=== PATIENT | female | born 1965 | race Caucasian/White ===

== ENCOUNTER 2022-05-17 09:49 | Outpatient (CLI) | payer BC, SELFPAY ==
--- OUTSIDE RECORDS SUMMARY | 2022-05-17 09:53 | XMS_ITS | Clinical Summary ---
:1965 Author Organization [facility] [place] [address] Care Team Providers Name Role Phone Woodrow Mustafa MD Primary Care Provider [phone] Allergies Active Allergy Reactions Severity Noted Date Comments Amoxicillin 02/13/2007 Penicillins Hives 04/02/2020 Medications Medication Sig Dispensed Refills Start Date End Date Status Cholecalciferol, Take 1 tablet by 1 tablet 0 06/11/2016 Active Vitamin D3, (VITAMIN mouth once D-3) 2,000 unit daily. tabletIndications: Well adult exam turmeric 400 mg Take by mouth. 0 02/05/2019 Active capIndications: Well adult exam famotidine (PEPCID) 20 Take 1 tablet by 180 tablet 3 0 Active mg tabletIndications: mouth 2 times Heartburn daily. psyllium husk, with Take 1 Packet by 30 Packet 0 04/02/2020 Active sugar, (METAMUCIL) 3.4 mouth 2 times gram packetIndications: daily. Bleeding hemorrhoids citalopram (CELEXA) 20 Take 1 Tablet 90 Tablet 3 03/03/2022 Active mg tabletIndications: (20 mg) by mouth Premenstrual tension once daily. syndrome, Major depressive disorder, recurrent, mild (HC) Active Problems Problem Noted Date Postmenopausal 03/27/2020 Bleeding hemorrhoids 03/09/2020 GERD (gastroesophageal reflux disease) 07/11/2014 Raynaud's syndrome Resolved Problems Problem Noted Date Resolved Date Premenstrual tension syndromes 09/21/2007 0 Gluten intolerance 03/27/2020 Encounters Date Type Specialty Care Team Description 03/03/2022 Office Visit Woodrow Mustafa, [place] peralta MD 03/03/2022 Travel 03/01/2022 Refill Woodrow Mustafa, Faith renee Request (Citalopram) from Last 3 Months Immunizations Name Administration Dates Next Due COVID-19 vaccine ([employer] 11/16/2020, 10/26/2020 30mcg/0.3mL) PF, MDV Hepatitis B (Adult) 06/09/1993, 01/04/1993, 12/01/1992 Influenza, IIV3 (Age 6-35 mos) 05/29/2015, 05/04/2012, 05/06 Influenza, IIV3 (Age >=3 years) 06/13/2013, 05/17/2011, 04/15, 05/19/2009, 06/16/2008, 06/04/2007 Influenza, IIV4 05/09/2019, 05/06/2017, 04/19/2016, 04/30/2014 Influenza, IIV4 (=>6mos) MDV 04/29/2016 Td (Age >=7 Years) 10/24/1997 Tdap 01/09/2018, 03/25/2008 Family History Medical History Relation Name Comments Asthma Brother Heart Disease Father [place] Cancer-colon Maternal Aunt Cancer Maternal Grandfather leukemia Cancer-breast Maternal Grandmother Cancer-colon Maternal Uncle Johnnie Diabetes Mother Hypertension Mother Stroke Mother Stroke Paternal Grandmother Cancer Sister 1 Leelee uterine Diabetes Sister 1 Leelee Cancer Sister 2 Theresa thyroid Relation Name Status Comments Brother Alive Father Maternal Aunt Maternal Grandfather Maternal Grandmother Maternal Uncle Johnnie Mother Paternal Grandfather Paternal Grandmother Sister 1 Leelee Alive Sister 2 Theresa Alive Sister 3 Daniela Alive Sister 4 Sofie Alive Social History Tobacco Use Types Packs/Day Years Used Date Never Smoker Smokeless Tobacco: Never Used Tobacco Cessation: Counseling Given: Yes Alcohol Use Standard Drinks/Week Comments Not Currently 0 (1 standard drink = 0.6 oz pure alcoho l) rare Sex Assigned at Date Recorded Not on file Obstetrics History Last Filed Vital Signs Vital Sign Reading Time Taken Comments Blood Pressure 102/60 03/03/2022 7:46 AM CDT Pulse 72 03/03/2022 7:46 AM CDT Temperature 36.3 ??C (97.3 ??F) 01/09/2022 9:18 AM CDT Respiratory Rate 14 01/09/2022 9:18 AM CDT Oxygen Saturation 100% 01/09/2022 9:18 AM CDT Inhaled Oxygen Concentration - - Weight 57.2 kg (126 lb) 03/03/2022 7:46 AM CDT Height 167.6 cm (5' 6) 03/03/2022 7:46 AM CDT Body Mass Index 20.34 03/03/2022 7:46 AM CDT Plan of Treatment Health Maintenance Due Date Last Done Comments Zoster (shingles) series for age 0904/26/2016 50+ (1 of 2) Mammogram for age 45-75 05/06/2021 05/06/2020, 04/16/2019, 04/10/2018, Additional history exists COVID-19 vaccine series (4 - 08/31/2021 07/06/2021, 021, Booster for Pfizer series) 10/26/2020 Influenza for age 50-64 04/14/2022 05/09/2019, 05/06/2017, 04/29/2016, Additional history exists BMI (ht and wt on same day) for 03/03/2023 03/03/2022, 02/12, age 18+ 03/27/2020, Additional history exists Depression screening for age 12+ 03/03/2023 03/03/2022, , 03/02/2021, Additional history exists Colonoscopy through age 75 03/26/2023 03/26/2013 Pap test for age 21-65 03/02/2026 03/02/2021, 03/02/2021, 02/20/2018, Additional history exists Lipids for age 45-75 03/03/2027 03/03/2022, 03/02/2021, 02/05/2019, Additional history exists Tetanus booster 01/10/2028 01/09/2018, 03/25/2008, 10/24/1997 Tdap Completed 01/09/2018, 03/25/2008 Hepatitis C screening for age Completed 03/03/2022 18-79 Procedures Procedure Name Priority Date/Time Associated Diagnosis Comme nts UA W/ SEDIMENT EXAM Routine 03/03/2022 8:30 AM Well adult exam Results for this REFLEXED PER CDT procedure are i n CRITERIA the results section. ANTI HCV Routine 03/03/2022 8:26 AM Need for hepatitis C R esults for this CDT screening test procedure are in the results section. LIPID PANEL W Routine 03/03/2022 8:26 AM Well adult exam Resul ts for this REFLEX MEASURED LDL CDT procedur e are in the results section. TSH Routine 03/03/2022 8:26 AM Well adult exam Result s for this CDT procedure are i n the results section. CBC W PLT NO DIFF Routine 03/03/2022 8:26 AM Well adult exam R esults for this CDT procedure are i n the results section. BASIC METABOLIC Routine 03/03/2022 8:26 AM Well adult exam Res ults for this PANEL CDT procedure are i n the results section. from Last 3 Months Results (ABNORMAL) UA W/ SEDIMENT EXAM REFLEXED PER CRITERIA (03/03/2022 8:30 AM CDT) [facility] gist Method Time Signature COLOR Yellow Yellow Color 03/03/2022 [place] 9:18 AM [facility] CLARITY Clear Clear 03/03/2022 [place] Clarity 9:18 AM [facility] SPECIFIC 1.015 1.010, 03/03/2022 [place] GRAVITY,URINE 1.015, 9:18 AM [facility] 1.020, 1.025 LABORATORY PH,URINE 7.0 6.0, 7.0, 03/03/2022 [place] 8.0, 5.5, 9:18 AM [facility] 6.5, 7.5, LABORATORY 8.5 UROBILINOGEN, Normal Normal EU/dl 03/03/2022 [place] QUALITATIVE 9:18 AM [facility] PROTEIN, Trace (A) Negative 03/03/2022 [place] URINE mg/dL 9:18 AM [facility] GLUCOSE, Negative Negative 03/03/2022 [place] URINE mg/dL 9:18 AM [facility] KETONES,URINE Negative Negative 03/03/2022 [place] mg/dL 9:18 AM [facility] BILIRUBIN,URI Negative Negative 03/03/2022 [place] NE 9:18 AM [facility] OCCULT Negative Negative 03/03/2022 [place] BLOOD,URINE 9:18 AM [facility] NITRITE Negative Negative 03/03/2022 [place] 9:18 AM [facility] LEUKOCYTE Negative Negative 03/03/2022 [place] ESTERASE 9:18 AM [facility] Specimen Anatomical Collection Method Collection Time Receive d Time (Source) Location / / Volume Laterality Urine URINE SPECIMEN / Non-Blood / 03/03/2022 8:30 AM 03/03 8:30 Unknown Unknown CDT AM CDT Woodrow Mustafa MD URINE Performing Organization Address City/State/ZIP Code Phon e Number [facility] [address] [place] [address] (ABNORMAL) LIPID PANEL W REFLEX MEASURED LDL (03/03/2022 8:26 AM CDT) [facility] gist Method Time Signature CHOLESTEROL,TOTAL 217 (H) 100 - 199 03/03/2022 [place] mg/dL 9:45 AM [facility] TRIGLYCERIDES 59 <150 03/03/2022 [place] mg/dL 9:45 AM [facility] HDL CHOLESTEROL 61 >40 mg/dL 03/03/2022 [place] 9:45 AM [facility] NON-HDL 156 (H) <145 03/03/2022 [place] CHOLESTEROL mg/dl 9:45 AM [facility] CHOL/HDL RATIO 3.56 <4.50 03/03/2022 [place] 9:45 AM [facility] LDL CHOLESTEROL 144 (H) <=130 03/03/2022 [place] mg/dL 9:45 AM [facility] VLDL CHOLESTEROL 12 <=30 03/03/2022 [place] mg/dL 9:45 AM [facility] PROVIDER ORDERED RANDOM 03/03/2022 [place] STATUS 9:45 AM [facility] Specimen Anatomical Collection Method / Collection Time Recei robyn Time (Source) Location / Volume Laterality Blood BLOOD SPECIMEN / Venipuncture / 03/03/2022 8:26 2021 8:28 Unknown Unknown AM CDT AM CDT Woodrow Mustafa MD CHEMISTRY Performing Organization Address City/State/ZIP Code Phon e Number [facility] [address] [place] [address] TSH (03/03/2022 8:26 AM CDT) athologist Signature TSH 1.44 0.35 - 4.94 03/03/2022 [facility] [employer] uIU/mL 5:14 PM CDT LABORATORY-CENTR AL LABORATORY Specimen Anatomical Collection Method / Collection Time Recei robyn Time (Source) Location / Volume Laterality Blood BLOOD SPECIMEN / Venipuncture / 03/03/2022 8:26 2021 8:28 Unknown Unknown AM CDT AM CDT Narrative [facility]-CENTRAL LABORAT ORY - 03/03/2022 5:14 PM CDT In Adults, TSH values between 5.00 and 10.00 uIU/ml do not necessarily indicate the presence of Hyp othyroidism. Correlation with clinical findings such as presence of goiter and/or Thyroperoxidase (TPO) Antibody ma y be helpful. For more information please refer to SVITLANA 20 ; 291: [phone]. Woodrow Mustafa MD CHEMISTRY Performing Organization Address City/[facility] Code Phon e Number [facility] [employer] [address] [place] [address] LABORATORY-CENTRAL 1999 LABORATORY ANTI HCV (03/03/2022 8:26 AM CDT) [facility] Time Signature HEPATITIS C Non-Reacti Non-Reacti 03/03/2022 [employer] [employer] ANTIBODY ve ve 5:07 PM CDT LABORATORY-[place] [facility] LABORATORY Comment: Antibodies to HCV not detected; does not exclude the possibility of exposure to HCV. Specimen Anatomical Collection Method / Collection Time Recei robyn Time (Source) Location / Volume Laterality Blood BLOOD SPECIMEN / Venipuncture / 03/03/2022 8:26 2021 8:28 Unknown Unknown AM CDT AM CDT Woodrow Mustafa MD SEND OUTS Performing Organization Address City/[facility]/ZIP Code Phon e Number [facility] [address] [place] [address] LABORATORY-CENTRAL 1999 LABORATORY (ABNORMAL) CBC W PLT NO DIFF (03/03/2022 8:26 AM CDT) [facility] Method Time Signature WHITE BLOOD 5.3 4.5 - 11.0 03/03/2022 [place] COUNT thou/cu mm 9:30 AM [facility] RED BLOOD COUNT 4.36 4.00 - 03/03/2022 [place] 5.20 9:30 AM [facility] mil/cu mm LABORATORY HEMOGLOBIN 13.0 12.0 - 03/03/2022 [place] 16.0 g/dL 9:30 AM [facility] HEMATOCRIT 40.6 33.0 - 03/03/2022 [place] 51.0 % 9:30 AM [facility] MCV 93 80 - 100 03/03/2022 [place] fL 9:30 AM [facility] MCH 29.8 26.0 - 03/03/2022 [place] 34.0 pg 9:30 AM [facility] MCHC 32.0 32.0 - 03/03/2022 [place] 36.0 g/dL 9:30 AM [facility] RDW 12.1 11.5 - 03/03/2022 [place] 15.5 % 9:30 AM [facility] PLATELET COUNT 225 140 - 440 03/03/2022 [place] thou/cu mm 9:30 AM [facility] MPV 11.3 (H) 6.5 - 11.0 03/03/2022 [facility] fL 9:30 AM [facility] Specimen Anatomical Collection Method / Collection Time Recei robyn Time (Source) Location / Volume Laterality Blood BLOOD SPECIMEN / Venipuncture / 03/03/2022 8:26 2021 8:28 Unknown Unknown AM T AM CDT Woodrow Mustafa MD HEMATOLOGY Performing Organization Address City/State/ZIP Code Phon e Number [facility] [address] [place] [address] (ABNORMAL) BASIC METABOLIC PANEL (03/03/2022 8:26 AM CDT) P athologist Signature SODIUM 140 135 - 145 03/03/2022 [place] mmol/L 9:44 AM [facility] POTASSIUM 4.3 3.5 - 5.0 03/03/2022 [place] mmol/L 9:44 AM [facility] CHLORIDE 103 98 - 110 03/03/2022 [place] mmol/L 9:44 AM [facility] CO2,TOTAL 28 21 - 31 03/03/2022 [place] mmol/L 9:44 AM [facility] ANION GAP 9 5 - 18 03/03/2022 [place] 9:44 AM [facility] GLUCOSE 92 65 - 100 03/03/2022 [place] mg/dL 9:44 AM [facility] CALCIUM 9.6 8.5 - 10.5 03/03/2022 [place] mg/dL 9:44 AM [facility] BUN 18 8 - 25 03/03/2022 [place] mg/dL 9:44 AM [facility] CREATININE 0.86 0.57 - 03/03/2022 [place] 1.11 mg/dL 9:44 AM [facility] BUN/CREAT RATIO 21 (H) 10 - 20 03/03/2022 [facility] 9:44 AM [facility] eGFR 80 (L) >90 03/03/2022 [facility] mL/min/1.7 9:44 AM [facility] 3m2 LABORATORY Comment: As of 2021, eGFR is calcu lated by the CKD-EPI creatinine equation without race adjustment. eGFR can be inf luenced by muscle mass, exercise, and diet. The reported eGFR is an estimation only and is only applicable if the renal function is stable. Specimen Anatomical Collection Method / Collection Time Recei robyn Time (Source) Location / Volume Laterality Blood BLOOD SPECIMEN / Venipuncture / 03/03/2022 8:26 2021 8:28 Unknown Unknown AM [facility] Wood[facility] Must[facility] MD CHEMISTRY Performing Organization Address City/State/ZIP Code Phon e Number [facility] [address] [place] [address] from Last 3 Months Insurance Payer Benefit Plan Subscriber ID Effective Dates Phone Address Type / Group WC WORKERS WC WORKERS [id number] Effective for [phone] [address] COMP COMP all dates [id number] [place] [address] [employer] OF [id number] [place] [address] [place] [address] [place]ing[place] [phone] [employer] OF [id number] 2019-[place] [address] [address] [place] [phone] (Home) [place] [phone] (Work) Erwin Joseph Personal/Family Spouse [address] (Home) [place] [phone] (Work) IRMA JOSEPH Workers Comp Spouse [phone] (Home) [place] [phone] (Work) Advance Directives Latest Code Status on File Code Status Date Activated Date Inactivated Comments Full Code 04/02/2020 11:10 AM 04/02/2020 6:00 PM Code Status Discussion: Discussed Full Code 10/31/2016 6:55 PM 11/01/2016 3:16 PM Care Teams Head Packager Relationship Specialty Start Date End Date Woodrow Mustafa MD PCP - General 12/26/11
--- OUTSIDE RECORDS SUMMARY | 2022-05-17 09:53 | XMS_ITS ---
:1965 Author Care Team Providers Name Role Phone Thelma Payan Primary Care Provider Unavailable Allergies Code Code System Name Reaction Severity Status Onset NKDA ? Medications Name Status Start Date Stop Date ? ? citalopram 20 mg tablet Active ? Not avai lable diazepam 5 mg tablet Active ? Not availab le Fluarix Quad (PF) 60 mcg (15 mcg x 4)/0.5 mL IM Active ? Not available syringe oxycodone-acetaminophen 5 mg-325 mg tablet Active ? Not available Problems No Known Problems Procedures None recorded. Results Lab Results Date Name Specimen Result Interpretation Description Value Range Status Address ? 05/28/2020 SARS CoV 2 RNA Nose (nasal ? Result negative ? ? 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 Social History None recorded. Vaccine List None recorded. Plan of Care Reminders Provider Appointments None recorded. ? ? Lab None recorded. ? ? Referral None recorded. ? ? Procedures None recorded. ? ? Surgeries None recorded. ? ? Imaging None recorded. ? ? Vitals Blood Pressure 108/68 mm[Hg]
--- NOTE | 2022-05-17 10:15 | CRLHL7_ITS ---
For Patients: As a result of the Century Cures Act, medical imaging exams and procedure reports are released immediately into your electronic medical record. You may view this report before your referring provider. If you have questions, please contact your health care provider. BILATERAL SCREENING MAMMOGRAM WITH COMPUTER-AIDED DETECTION AND TOMOSYNTHESIS TECHNIQUE: CC and MLO views were obtained. These mammographic images have been obtained using full-field digital technique. These mammographic images were interpreted with the benefit of computer-aided detection. Breast Tomosynthesis was used in this interpretation. COMPARISON FILM: 05/12/21, 05/06/20, 04/16/19. FINDINGS: There are scattered areas of fibroglandular density IMPRESSION: There is no radiographic evidence for malignancy. ASSESSMENT: BI-RADS Category 1: Negative RECOMMENDATION: Routine screening mammogram in 1 year. A lay language report of this examination will be provided to the patient. Zoila Guardado M.D. Diagnostic/Breast Radiologist [email or web address] [place]/Dictated by: Zoila Guardado MD @ 05/17/2022 12:03:00 PM (Electronically Signed)
== END 2022-05-17 09:50 | disposition home or self-care (01) ==
LOC: MAMMO 09:50
PROVIDERS: Visit Provider Family Medicine
DX: Z12.31 Encounter for screening mammogram for malignant neoplasm of breast (principal)
CPT/HCPCS: 77063; 77067

== ENCOUNTER 2023-05-23 08:50 | Outpatient (CLI) | payer BC, SELFPAY ==
--- NOTE | 2023-05-23 09:15 | CRLHL7_ITS ---
For Patients: As a result of the Century Cures Act, medical imaging exams and procedure reports are released immediately into your electronic medical record. You may view this report before your referring provider. If you have questions, please contact your health care provider. BILATERAL SCREENING MAMMOGRAM WITH COMPUTER-AIDED DETECTION AND TOMOSYNTHESIS TECHNIQUE: CC and MLO views were obtained. These mammographic images have been obtained using full-field digital technique. These mammographic images were interpreted with the benefit of computer-aided detection. Breast Tomosynthesis was used in this interpretation. COMPARISON FILM: 05-17-22, 05-12-21, 05-06-20. FINDINGS: The breasts are heterogeneously dense, which may obscure small masses IMPRESSION: There is no radiographic evidence for malignancy. ASSESSMENT: BI-RADS Category 1: Negative RECOMMENDATION: Routine screening mammogram in 1 year. A lay language report of this examination will be provided to the patient. Sumit Montgomery M.D. Diagnostic Radiologist [email or web address] [place]/Dictated by: Sumit Montgomery MD @ 05/23/2023 12:34:00 PM (Electronically Signed)
== END 2023-05-23 08:51 | disposition home or self-care (01) ==
LOC: MAMMO 08:51
PROVIDERS: Visit Provider Family Medicine
DX: Z12.31 Encounter for screening mammogram for malignant neoplasm of breast (principal); R92.2 Inconclusive mammogram
CPT/HCPCS: 77063; 77067

== ENCOUNTER 2024-05-28 09:55 | Outpatient (CLI) | payer OTHER, SELFPAY ==
--- OUTSIDE RECORDS SUMMARY | 2024-05-28 10:02 | XMS_ITS | Clinical Summary ---
Author Organization [facility] Address [place], [place] [address] Care Team Providers Care Bow String Maker Name Role Phone Woodrow Mustafa MD Primary Care Provider Allergies Active Allergy Reactions Criticality Noted Date Comments Amoxicillin 02/13/2007 Penicillins Hives 04/02/2020 Medications Medication Sig Dispensed Refills Start Date End Date Status Cholecalciferol, Vitamin D3, (VITAMIN D-3) 2,000 unit tabletIndications:Wel l adult exam Take 1 tablet by mouth once daily. 1 tablet 06/11/2016 Active turmeric 400 mg capIndications:Well adult exam Take by mouth. 0 02/05/2019 Active famotidine (PEPCID) 20 mg tabletIndications:Hea rtburn Take 1 tablet by mouth 2 times daily. 180 tablet 3 02/26/2020 Active psyllium husk, with sugar, (METAMUCIL) 3.4 gram packetIndications:Ble eding hemorrhoids Take 1 Packet by mouth 2 times daily. 30 Packet 04/02/2020 Active citalopram (CELEXA) 20 mg tabletIndications:Pre menstrual tension syndrome,Major depressive disorder, recurrent, mild (HC) Take 1 Tablet (20 mg) by mouth once daily. 90 Tablet 3 03/12/2024 Active polyethylene glycoL (Miralax) 17 gram/scoop powder Mix 1 scoop in liquid then take by mouth. Active Active Problems Problem Noted Date Diagnosed Date Polyp of colon 04/04/2023 Postmenopausal 03/27/2020 Bleeding hemorrhoids 03/09/2020 GERD (gastroesophageal reflux disease) 4 Raynaud's syndrome Resolved Problems Problem Noted Date Diagnosed Date Resolved Date Premenstrual tension syndromes 09/21/2007 03/27/2020 Gluten intolerance 0 Encounters Date Type Department Care Team Description 03/27/2024 2:00 PM CDT Office Visit [facility] [address] [place] [address] Catracho Treadwell MD Follow Up (Gas, bloating, feels fullness in throat, Taty- gassy, bloating, rectal bleeding) 03/27/2024 Travel 03/12/2024 7:40 AM CDT Office Visit [facility] [address] [facility] [place] [address] Woodrow Mustafa MD Physical 03/12/2024 Travel 03/12/2024 Refill [facility] [address] [place] [address] Woodrow Mustafa MD Refill Request (Citalopram) 03/09/2024 Travel from Last 3 Months Immunizations Name Administration Dates Next Due COVID-19 vaccine (BuddyBounce NTLettuce 30mcg/0.3mL) PF, MDV 11/16/2020,10/26/2020 Hepatitis B (Adult) 06/09/1993,01/04/1993,1992 Influenza, IIV3 (Age 6-35 mos) 05/29/2015,2011,05/06/2010 Influenza, IIV3 (Age >=3 years) 06/13/20 13,05/17/2011,05/11/2010, 009,06/16/2008,06/04/2007 Influenza, IIV4 05/29/2023, 2,06/05/2021, 020,05/09/2019,05/28/2018,05/06/2017,01/2016,04/30/2014 Influenza, IIV4 (=>6mos) MDV 04/29/2016 Td (Age >=7 Years) 10/24/1997 Tdap 01/09/2018,03/25/2008 Zoster (Shingrix-RZV, recombinant) 10/04/2021, Family History Medical History Relation Name Comments Asthma Brother Heart Disease Father [place] Cancer-colon Maternal Aunt Cancer Maternal Grandfather leukemi a Cancer-breast Maternal Grandmother Cancer-colon Maternal Uncle Johnnie [...] Tobacco Use Types Packs/Day Years Used Date Smoking Tobacco: Never Smokeless Tobacco: Never Tobacco Cessation:Counseling Given: No Alcohol Use Standard Drinks/Week Comments Not Currently 0 (1 standard drink = 0.6 oz pur e alcohol) rare PHQ-2 Answer Date Recorded PHQ-2 TOTAL SCORE 0 03/12/2024 Social Connections Answer Date Recorded Frequency of Communication with Friends and Fami ly 0 03/09/2024 Financial Resource Strain Answer Date R ecorded Difficulty of Paying Living Expenses 3 03/09/2024 Difficulty of Paying Living Expenses Not on file 03/09/2024 Food Insecurity Answer Date Recorded Worried About Running Out of Food in the Last Ye ar 1 03/09/2024 Transportation Needs Answer Date Record ed Lack of Transportation (Medical) 1 03/09/2024 Housing Stability Answer Date Recorded Unable to Pay for Housing in the Last Year 1 03/09/2024 Sex and Gender Information Value Date Recorded Sex Assigned at Not on file Gender Identity Not on file Sexual Orientation Not on file Obstetrics History Last Filed Vital Signs Vital Sign Reading Time Taken Comments Blood Pressure 104/66 03/27/2024 1:43 PM CDT Pulse 81 03/27/2024 1:43 PM CDT Temperature 36.4 ??C (97.6 ??F) 04/04/2023 7:49 AM CD T Respiratory Rate 14 04/04/2023 9:30 AM CDT Oxygen Saturation 100% 03/27/2024 1:43 PM CDT Inhaled Oxygen Concentration - - Weight 59.9 kg (132 lb) 03/27/2024 1:43 PM CDT Height 167.6 cm (5' 6) 03/12/2024 7:43 AM CDT Body Mass Index 21.31 03/12/2024 7:43 AM CDT Plan of Treatment Health Maintenance Due Date Last Done Comments HIV for age 15-65 1981 Mammogram for age 45-75 05/17/2023 05/17/20, 05/06/2020, 04/16/2019, Additional history exists COVID-19 vaccine series ( season) 2024 07/06/2021, 11/16/2020, 10/26/2020 Influenza for age 50-64 04/14/2024 05/29/20, 06/01/2022, 06/05/2021, Additional history exists BMI (ht and wt on same day) for age 18+ 03/12/2025 03/12/2024, 03/07/2023, 03/07/2023, Additional history exists Depression screening for age 12+ 03/12/2025 03/12/2024, 03/22/2023, 03/20/2023, Additional history exists Pap test for age 21-65 03/02/2026 , 03/02/2021, 02/20/2018, Additional history exists Tetanus booster 01/10/2028 01/09/2018, 03/14, 10/24/1997 Colonoscopy through age 75 04/04/2028 04/04/2023, Lipids for age 45-75 03/12/2029 03/12/2024, 03/07/2023, 03/03/2022, Additional history exists Tdap Completed 01/09/2018, 03/25/2008 Zoster (shingles) series for age 50+ Completed 10/04/2021, 06/05/2021 Hepatitis C screening for age 18-79 Completed 03/03/2022 Pneumococcal series for age 6-64 Aged Out No longer eligible based on patient's age to complete this topic Procedures Procedure Name Priority Date/Time Associated Diagnosis Comments UA W/ SEDIMENT EXAM REFLEXED PER CRITERIA Routine 03/12/2024 8:18 AM CDT Premenstrual tension syndrome Well adult exam PLATELET ESTIMATE Routine 03/12/2024 8:1 2 AM CDT Premenstrual tension syndrome Well adult exam RED CELL MORPHOLOGY Routine 03/12/2024 8 :12 AM CDT Premenstrual tension syndrome Well adult exam CBC W PLT NO DIFF Routine 03/12/2024 8:1 2 AM CDT Premenstrual tension syndrome Well adult exam LIPID PANEL W REFLEX MEASURED LDL Routine 03/12/2024 8:12 AM CDT Premenstrual tension syndrome Mixed hyperlipidemia Well adult exam BASIC METABOLIC PANEL Routine 03/12/2024 8:12 AM CDT Premenstrual tension syndrome Well adult exam COLONOSCOPY 04/04/2023 8:50 AM CDT SCAN-MAMMOGRAPHY REPORT 05/17/2022 12:00 AM CDT ANTI HCV Routine 03/03/2022 8:26 AM CDT Need for hepatitis C screening test CLAIM REPRESENTATIVE THIN PREP PAP SCREEN IMAGED Routine 03/02/2021 9:00 AM CDT Pap smear for cervical cancer screening from Last 3 Months or Most Recently Relevant to Health Maintenance Results * UA W/ SEDIMENT EXAM REFLEXED PER CRITERIA (03/12/2024 8:18 AM CDT) COLOR Yellow Yellow Color 03/12/2024 8:[address] [facility] CLARITY Clear Clear Clarity 03/12/2024 8:[address] [facility] SPECIFIC GRAVITY,URINE 1.015 1.010, 1.015, 1.020, 1.025 03/12/2024 8:[address] [facility] PH,URINE 8.0 6.0, 7.0, 8.0, 5.5, 6.5, 7.5, 8.5 03/12/2024 8:[address] [facility] UROBILINOGEN, QUALITATIVE Normal Normal EU/dl 03/12/2024 8:[address] [facility] PROTEIN, URINE Negative Negative mg/dL 03/12/2024 8:[address] [facility] GLUCOSE, URINE Negative Negative mg/dL 03/12/2024 8:[address] [facility] KETONES,URINE Negative Negative mg/dL 03/12/2024 8:[address] [facility] BILIRUBIN,URI NE Negative Negative 03/12/2024 8:[address] [facility] OCCULT BLOOD,URINE Negative Negative 03/12/2024 8:[address] [facility] NITRITE Negative Negative 03/12/2024 8:[address] [facility] LEUKOCYTE ESTERASE Negative Negative 03/12/2024 8:[address] [facility] Urine URINE SPECIMEN / Unknown Non-Blood / Unknown 03/12/2024 8:18 AM CDT 03/12/2024 8:18 AM CDT Woodrow Mustafa MD URINE Performing Organization Address City/[facility]/ZIP Co de Phone Number [facility] [address] [place] [address] * RED CELL MORPHOLOGY (03/12/2024 8:12 AM CDT) Pathologist [facility] RBC COMMENT RBC morphology appears normal RBC morphology appears normal, RBC morphology within normal limits for newborns. 03/12/2024 10:[address] [facility] Blood BLOOD SPECIMEN / Unknown Venipuncture / Unknown 03/12/2024 8:12 AM CDT 03/12/2024 8:14 AM CDT Woodrow Mustafa MD HEMATOLOGY Performing Organization Address City/[facility]/ZIP Co de Phone Number [facility] [address] [place] [address] * PLATELET ESTIMATE (03/12/2024 8:12 AM CDT) Pathologist [facility] PLATELET ESTIMATE Adequate Adequate, No estimate 03/12/2024 10:[address] [facility] Blood BLOOD SPECIMEN / Unknown Venipuncture / Unknown 03/12/2024 8:12 AM CDT 03/12/2024 8:14 AM CDT Woodrow Mustafa MD HEMATOLOGY Performing Organization Address City/[facility]/ZIP Co de Phone Number [facility] [address] [place] [address] * (ABNORMAL) LIPID PANEL W REFLEX MEASURED LDL (03/12/2024 8:12 AM CDT) CHOLESTEROL,TOTAL 214(H) 100 - 199 mg/dL 03/12/2024 8:[address] [facility] Comment: Cholesterol, Total Reference Ranges Desirable <200 mg/dL Borderline 200-239 mg/dL High >=240 mg/dL TRIGLYCERIDES 69 <150 mg/dL 03/12/2024 8:[address] [facility] HDL CHOLESTEROL 74 >40 mg/dL 8:[address] [facility] NON-HDL CHOLESTEROL 140 <145 mg/dl 03/12/2024 8:[address] [facility] CHOL/HDL RATIO 2.89 <4.50 03/12/2024 8:[address] [facility] LDL CHOLESTEROL 126 <=130 mg/dL 03/12/2024 8:[address] [facility] VLDL CHOLESTEROL 14 <=30 mg/dL 03/12/2024 8:[address] [facility] PROVIDER ORDERED STATUS RANDOM 03/12/2024 8:[address] [facility] Blood BLOOD SPECIMEN / Unknown Venipuncture / Unknown 03/12/2024 8:12 AM CDT 03/12/2024 8:14 AM CDT Woodrow Mustafa MD CHEMISTRY [facility] [address] [place] [address] * CBC W PLT NO DIFF (03/12/2024 8:12 AM CDT) WHITE BLOOD COUNT 4.9 4.5 - 11.0 thou/cu mm 03/12/2024 10:[address] [facility] RED BLOOD COUNT 4.55 4.00 - 5.20 mil/cu mm 03/12/2024 10:16 AM [facility] HEMOGLOBIN 13.6 12.0 - 16.0 g/dL 03/12/2024 10:[address] [facility] HEMATOCRIT 40.7 33.0 - 51.0 % 03/12/2024 10:16 AM [facility] MCV 90 80 - 100 fL 03/12/2024 10:16 AM [facility] MCH 29.9 26.0 - 34.0 pg 03/12/2024 10:16 AM [facility] MCHC 33.4 32.0 - 36.0 g/dL 03/12/2024 10:16 AM [facility] RDW 11.5 11.5 - 15.5 % 03/12/2024 10:16 AM [facility] PLATELET COUNT 220 140 - 440 thou/cu mm 03/12/2024 10:16 AM [facility] MPV 10.1 6.5 - 11.0 fL 03/12/2024 10:16 AM [facility] Blood BLOOD SPECIMEN / Unknown Venipuncture / Unknown 03/12/2024 8:12 AM CDT 03/12/2024 8:14 AM CDT Woodrow Mustafa MD HEMATOLOGY [facility] [address] [place] [address] * (ABNORMAL) BASIC METABOLIC PANEL (03/12/2024 8:12 AM CDT) Pathologist [facility] SODIUM 142 136 - 145 mmol/L 03/12/2024 8:[address] [facility] POTASSIUM 4.2 3.5 - 5.1 mmol/L 03/12/2024 8:43 AM [facility] CHLORIDE 102 98 - 107 mmol/L 03/12/2024 8:43 AM [facility] CO2,TOTAL 31(H) 22 - 29 mmol/L 03/12/2024 8:43 AM [facility] ANION GAP 9 5 - 18 03/12/2024 8:43 AM [facility] GLUCOSE 95 70 - 99 mg/dL 03/12/2024 8:43 AM [facility] CALCIUM 9.8 8.6 - 10.0 mg/dL 03/12/2024 8:43 AM [facility] BUN 14 6 - 20 mg/dL 03/12/2024 8:43 AM [facility] CREATININE 0.82 0.50 - 0.90 mg/dL 03/12/2024 8:43 AM [facility] BUN/CREAT RATIO 17 10 - 20 8:43 AM [facility] eGFR 84(L) >90 mL/min/1.7 3m2 03/12/2024 8:43 AM [facility] Comment:As of 2021, eG FR is calculated by the CKD-EPI creatinine equation without race adjustment. ??eGFR can be influenced by muscle mass, exercise, and diet. ??The reported eGFR is an estimation only and is only applicable if the renal function is stable. Blood BLOOD SPECIMEN / Unknown Venipuncture / Unknown 03/12/2024 8:12 AM CDT 03/12/2024 8:14 AM CDT Woodrow Mustafa MD CHEMISTRY [facility] [address] [place] [address] * COLONOSCOPY (04/04/2023 8:50 AM CDT) 04/04/2023 8:50 AM CDT Narrative Transcriptions Jose Soto DO - 04/05/2023 8:28 AM CDT Patient Name: Irma Joseph Procedure Date: 04/04/2023 Gender: Female Date of : 1965 Admit Type: Ambulatory Procedure: Colonoscopy Proceduralist: Jose Soto MD [facility] Referring MD: Woodrow Mustafa MD Indications/Pre-Op Diagnosis: Screening for colorectal malignant neoplasm, Last colonoscopy 10 years ago Medications: Propofol per Anesthesia Procedure Description: The patient had risks, benefits and alternatives explained to andgave informed consent. The patient had a stable cardiopulmonary status and judged an adequate candidate for conscious sedation. The endoscope [id number] was passed through the anus andadvanced to the cecum, identified by appendiceal orifice and ileocecal valve.The colonoscopy was performed without difficulty. The patient toleratedthe procedure well. The quality of the bowel preparation was good. The ileocecal valve, appendiceal orifice, and rectum were photographed. Complications: No immediate complications. Estimated Blood Loss & Specimen: Estimated blood loss: none. Specimen collected - Yes and sent to Laboratory Findings: A 3 mm polyp was found in the ascending colon. The polyp was sessile. The polyp was removed with a hot snare. Resection and retrieval were complete. Verification of patient identification for the specimen was done. Estimated blood loss was minimal. Impressions/Post-Op Diagnosis: - One 3 mm polyp in the ascending colon, removed with a hot snare. Resected and retrieved. Recommendation: - Discharge patient to home. - Patient has a contact number available for emergencies. The signsand symptoms of potential delayed complications were discussed with the patient. Return to normal activities tomorrow. Written discharge instructions were provided to the patient. - High fiber diet. - Continue present medications. - Await pathology results. - Repeat colonoscopy in 5-10 years for surveillance based onpathology results. Moderate Sedation: Moderate (conscious) sedation was personally administered by an anesthesia professional. The following parameters were monitored:oxygen saturation, heart rate, blood pressure, and response to care. Jose Soto MD 04/05/2023 8:28:10 AM This report has been signed electronically. Note Initiated On: 04/04/2023 8:50 AM Jose Soto DO PROCEDURE ORD * SCAN-MAMMOGRAPHY REPORT (05/17/2022 12:00 AM CDT) Anatomical Region Laterality Modality Other Scanner OTHER * ANTI HCV (03/03/2022 8:26 AM CDT) HEPATITIS C ANTIBODY Non-React parviz Non-React parviz 03/03/2022 5:07 PM CDT [facility] Comment:Antibodies to HCV no t detected; does not exclude the possibility of exposure to HCV. Blood BLOOD SPECIMEN / Unknown Venipuncture / Unknown 03/03/2022 8:26 AM CDT 03/03/2022 8:28 AM CDT Woodrow Mustafa MD SEND OUTS [facility] [address] [place] [address], * CLAIM REPRESENTATIVE THIN PREP PAP SCREEN IMAGED (03/02/2021 9:00 AM CDT) Case Report Gynecologic Cytology Report ? Case: [id number] ? Authorizing Provider: ??Woodrow Mustafa MD Collected: ? 03/02/2021 0900 ? Ordering Location: ? [facility] [place] ?Received: ?03/02/2021 1310 ? Clinic ? First Screen: ?Baccam, Kurt ? Specimen: ?CLAIM REPRESENTATIVE ThinPrep Vial Screening, Cervical ? 03/11/2021 4:40 PM CDT [facility] INTERPRETATION/ RESULT NEGATIVE FOR INTRAEPITHELIAL LESION OR MALIGNANCY (NIL) (none) 03/11/2021 4:40 PM CDT [facility] IMEN ADEQUACY Satisfactory for evaluation Endocervical component present 03/11/2021 4:40 PM CDT [facility] HPV REQUEST HPV and PAP 03/11/2021 4:40 PM CDT [facility] Date of LMP [id number] 03/11/2021 4:40 PM CDT [facility] Last Pap Date 02/20/18 03/11/2021 4:40 PM CDT [facility] Last Pap Result NIL 4:40 PM CDT [facility] Abnormal Pap or [place] Bx in last 5 years No 03/11/2021 4:40 PM CDT [facility] Menstrual Status Ablation 03/11/2021 4:40 PM CDT [facility] [place] Bx Done Today No 03/11/2021 4:40 PM CDT [facility] Additional Information None given 03/11/2021 4:40 PM CDT [facility] Comment: Cytology is screened at [facility] - [address], [place] [address] and [facility] - [address] [place] [address] and [facility] - [address] [place] [address] Interpreted at [facility] - [address], [place] [address] Automated Review Successful 03/11/2021 4:40 PM CDT [facility] Comment:Specimen processed s uccessfully by automated cream beater device, ThinPrep Imaging System, [employer] ANCILLARY TESTING CLAIM REPRESENTATIVE HPV Ordered, Please see separate report 03/11/2021 4:40 PM CDT [facility] Note The pap test is a screening technique, not a diagnostic procedure. It is used primarily to screen for squamous cancers and precursor lesions. Published studies have shown that it is subject to both false negative and false positive results. The pap test should not be used as the sole means to diagnose or exclude pre-malignant and malignant lesions. 03/11/2021 4:40 PM CDT [facility] Other (Cervical) Non-Blood / Unknown 03/02/2021 9:00 AM CDT 03/02/2021 1:10 PM CDT Woodrow Mustafa MD PATHOLOGY/CYTOL OGY [facility] [address] [place] [address], from Last 3 Months or Most Recently Relevant to Health Maintenance Advance Directives * Full Code (Latest Code Status on File) Date Activated Date Inactivated Comments 04/04/2023 7:31 AM 04/04/2023 1:00 PM Question Answer Comments Code Status Discussion: Discussed * Full Code Date Activated Date Inactivated Comments 04/02/2020 11:10 AM 04/02/2020 6:00 PM Question Answer Comments Code Status Discussion: Discussed * Full Code Date Activated Date Inactivated Comments 10/31/2016 6:55 PM 11/01/2016 3:16 PM Care Teams Bow String Maker Relationship Specialty Start Date End Date Woodrow Mustafa MD PCP - General 12/26/11
--- NOTE | 2024-05-28 10:15 | CRLHL7_ITS ---
For Patients: As a result of the Cures Act, medical imaging exams and procedure reports are released immediately into your electronic medical record. You may view this report before your referring provider. If you have questions, please contact your health care provider. BILATERAL SCREENING MAMMOGRAM WITH COMPUTER-AIDED DETECTION AND TOMOSYNTHESIS TECHNIQUE: CC and MLO views were obtained. These mammographic images have been obtained using full-field digital technique. These mammographic images were interpreted with the benefit of computer-aided detection. Breast Tomosynthesis was used in this interpretation. COMPARISON FILM: 05/23/23, 05/17/22, 05/12/21. FINDINGS: There are scattered areas of fibroglandular density IMPRESSION: There is no radiographic evidence for malignancy. ASSESSMENT: BI-RADS Category 1: Negative RECOMMENDATION: Routine screening mammogram in 1 year. A lay language report of this examination will be provided to the patient. Sumit Montgomery M.D. Diagnostic Radiologist [email or web address] Transcribed: 3:29 [email or web address] bowie/Dictated by: Sumit Montgomery MD @ 06/03/2024 11:08:00 AM (Electronically Signed)
== END 2024-05-28 09:56 | disposition home or self-care (01) ==
LOC: MAMMO 09:57
PROVIDERS: PCP Family Medicine; Visit Provider Family Medicine
DX: Z12.31 Encounter for screening mammogram for malignant neoplasm of breast (principal)
CPT/HCPCS: 77063; 77067

== ENCOUNTER 2025-06-26 09:49 | Outpatient (CLI) | payer OTHER, SELFPAY ==
--- NOTE | 2025-06-26 10:15 | CRLHL7_ITS ---
For Patients: As a result of the Century Cures Act, medical imaging exams and procedure reports are released immediately into your electronic medical record. You may view this report before your referring provider. If you have questions, please contact your health care provider. INDICATION: BILATERAL SCREENING MAMMOGRAM, ASYMPTOMATIC 60 Y/O FEMALE COMPARISON: 05/28/2024, 05/23/2023, 05/17/2022 TECHNIQUE: Digital mammogram in CC and MLO projections including computer-aided detection (CAD) and tomosynthesis. BREAST COMPOSITION: There are scattered areas of fibroglandular density. FINDINGS: No suspicious findings. ASSESSMENT: BI-RADS 1 Negative RECOMMENDATION: Annual screening mammogram. A lay language report of this examination will be provided to the patient. Dictated by: Sumit Montgomery MD @ 06/26/2025 10:53:44 (Electronically Signed)
== END 2025-06-26 09:50 | disposition home or self-care (01) ==
LOC: MAMMO 09:50
PROVIDERS: PCP Family Medicine; Visit Provider Family Medicine
DX: Z12.31 Encounter for screening mammogram for malignant neoplasm of breast (principal)
CPT/HCPCS: 77063; 77067